=== PATIENT | female | born 2000 | race Two or more races ===

== ENCOUNTER 2024-01-11 14:26 | Emergency (ER) | payer OTHER ==
[~2024-01-11] VITALS: Ht 160 cm; Wt 70.0 kg
[2024-01-11 14:47] VITALS: BP 130/70; PULSE 80; RESP 18; TEMP 98.3; O2SAT 98
[2024-01-11] MEDS: ACETAMINOPHEN 500 MG TABLET PO ONE (14:54)
== END 2024-01-11 15:40 | disposition home or self-care (01) ==
LOC: EMS 14:29
DX: S63.501A Unspecified sprain of right wrist, initial encounter (principal); W19.XXXA Unspecified fall, initial encounter; Y93.68 Activity, volleyball (beach) (court); Y92.89 Other specified places as the place of occurrence of the external cause; Y99.8 Other external cause status
CPT/HCPCS: 99284; 73110-TC; 73130-TC; Z7502; Z7610